=== PATIENT | male | born 1985 ===

== ENCOUNTER 2018-03-10 11:47 | Emergency (ER) | payer OTHER ==
[2018-03-10 11:59] VITALS: BMI 25.8
[2018-03-10 12:04] VITALS: TEMP 98.6
--- NOTE | 2018-03-10 12:17 | ED PDOC ---
Arrival/HPI - General Historian: Patient <Gema Orona - Last Filed: 03/10/18 12:43> <Janet Norton - Last Filed: 03/10/18 12:50> - General Chief Complaint: Eye Problem Time Seen by Provider: 03/10/18 11:59 - History of Present Illness Narrative History of Present Illness (Text): 03/10/18 12:20 Patient is a 32 year old male with no significant past medical history presents to the ED for stye that has been present for the past week. Patient saw his doctor last week who prescribed him an antibiotic cream. States that for the past 4 days he's noticed it getting bigger and more painful. He was seen by his PCP who referred him to the ED for possible drainage. Pain is controlled at this time, denies any change in vision, trauma. (Gema Orona) Past Medical History - Provider Review Nursing Documentation Reviewed: Yes - Past History Past History: No Previous - Past Medical History Past Medical History: No Previous - Cardiac Hx Cardiac Disorders: No - Pulmonary Hx Respiratory Disorders: No - Neurological Hx Neurological Disorder: No - HEENT Hx HEENT Disorder: No - Renal Hx Renal Disorder: No - Endocrine/Metabolic Hx Endocrine Disorders: No - Hematological/Oncological Hx Blood Disorders: No - Integumentary Hx Dermatological Disorder: No - Musculoskeletal/Rheumatological Hx Musculoskeletal Disorders: No - Gastrointestinal Hx Gastrointestinal Disorders: No - Genitourinary/Gynecological Hx Genitourinary Disorders: No - Psychiatric Hx Psychophysiologic Disorder: No Hx Substance Use: No - Anesthesia Hx Anesthesia: No <Gema Orona - Last Filed: 03/10/18 12:43> Family/Social History - Physician Review Nursing Documentation Reviewed: Yes Family/Social History: No Known Family HX Smoking Status: Never Smoked Hx Alcohol Use: No Hx Substance Use: No <Gema Orona - Last Filed: 03/10/18 12:43> Allergies/Home Meds <Gema Orona - Last Filed: 03/10/18 12:43> <Janet Norton - Last Filed: 03/10/18 12:50> Allergies/Adverse Reactions: Allergies No Known Allergies Allergy (Verified 03/10/18 12:03) Review of Systems - Review of Systems Constitutional: absent: Fatigue, Fevers Eyes: Eye Pain. absent: Vision Changes ENT: absent: Hearing Changes Respiratory: absent: SOB, Cough, Wheezing Cardiovascular: absent: Chest Pain, Palpitations, Edema Gastrointestinal: absent: Abdominal Pain, Constipation, Diarrhea, Nausea, Vomiting Genitourinary Male: absent: Dysuria, Frequency Neurological: absent: Headache, Dizziness <Gema Orona - Last Filed: 03/10/18 12:43> Physical Exam Vital Signs Reviewed: Yes Temperature: Afebrile Blood Pressure: Normal Pulse: Regular Respiratory Rate: Normal Appearance: Positive for: Well-Appearing, Non-Toxic Pain Distress: None Mental Status: Positive for: Alert and Oriented X 3 - Systems Exam Head: Present: Atraumatic, Normocephalic Pupils: Present: PERRL Extroacular Muscles: Present: EOMI, Other (+stye on left upper eye lid, tender to palpation, erythematous, no drainage) Conjunctiva: Present: Normal Mouth: Present: Moist Mucous Membranes Neck: Present: Normal Range of Motion Respiratory/Chest: Present: Clear to Auscultation, Good Air Exchange. No: Respiratory Distress, Accessory Muscle Use Cardiovascular: Present: Regular Rate and Rhythm, Normal S1, S2 Abdomen: Present: Normal Bowel Sounds. No: Tenderness Upper Extremity: Present: Normal Inspection Lower Extremity: Present: Normal Inspection Neurological: Present: GCS=15, CN II-XII Intact, Speech Normal Skin: Present: Warm, Dry, Normal Color Psychiatric: Present: Alert, Oriented x 3, Normal Insight <Gema Orona - Last Filed: 03/10/18 12:43> Vital Signs Temp Pulse Resp BP Pulse Ox 03/10/18 11:59 98.6 F 63 17 105/58 L 98 Medical Decision Making <Gema Orona - Last Filed: 03/10/18 12:43> <Janet Norton - Last Filed: 03/10/18 12:50> ED Course and Treatment: 03/10/18 In agreement with resident note, which includes further HPI details. Patient was seen and evaluated with resident, came up with plan and treatment together. (Janet Norton) <Gema Orona - Last Filed: 03/10/18 12:43> - PA / MANAGER CCU / Resident Statement PEDRO LUIS has reviewed & agrees with the documentation as recorded. MD/DO has examined the patient and agrees with the treatment plan. - Scribe Statement The provider has reviewed the documentation as recorded by the Scribe <Janet Norton - Last Filed: 03/10/18 12:50> - Scribe Statement Scarlett Hooverdua Provider Scribe Attestation: All medical record entries made by the Scribe were at my direction and personally dictated by me. I have reviewed the chart and agree that the record accurately reflects my personal performance of the history, physical exam, medical decision making, and the department course for this patient. I have also personally directed, reviewed, and agree with the discharge instructions and disposition. (Janet Norton) Disposition/Present on Arrival - Present on Arrival Any Indicators Present on Arrival: No History of DVT/PE: No History of Uncontrolled Diabetes: No Urinary Catheter: No History of Decub. Ulcer: No History Surgical Site Infection Following: None - Disposition Have Diagnosis and Disposition been Completed?: Yes Disposition Time: 12:40 <Gema Orona - Last Filed: 03/10/18 12:43> <Janet Norton - Last Filed: 03/10/18 12:50> - Disposition Diagnosis: Stye Disposition: HOME/ ROUTINE Patient Problems: Current Active Problems Problem Status Onset Stye Acute Condition: STABLE Additional Instructions: Apply warm compresses to your eye for 5-10 minutes at a time, you can do this a few times a day Clean your eye with mild soap and water Please avoid wearing contacts or eye make up If symptoms persist or worsen, please return to nearest ED Prescriptions: Ibuprofen [Motrin] 600 mg PO Q6H PRN #16 tab PRN Reason: Pain, Moderate (4-7) Referrals: Neal Servin MD [Staff Provider] - Follow up with primary Forms: [place] ([place]ian)
[2018-03-10 13:27] VITALS: BP 111/64; PULSE 69; RESP 18; O2SAT 99
== END 2018-03-10 13:16 | disposition home or self-care (01) ==
LOC: ED 11:47
DX: H00.024 Hordeolum internum left upper eyelid (principal)